=== PATIENT | female | born 1965 | race Caucasian/White ===

== ENCOUNTER 2018-12-08 06:14 | Day surgery (SDC) | payer OTHER ==
[~2018-12-08 06:14] MED LIST: ADVAIR 100-501 EACH IH; AMBIEN10 MG; EVOXAC; MOTRIN800 MG PO; NAPR500T14; PLAQUENIL PO; PROVENTIL S1 ML/5 MG IH; SYMBICORT 16010.2 GM
== END 2018-12-08 14:00 | disposition home or self-care (01) ==
LOC: CIR.AMB 06:14
DX: M71.331 Other bursal cyst, right wrist (principal)